=== PATIENT | female | born 1985 | race Caucasian/White ===

== ENCOUNTER 2020-06-26 12:49 | Observation (INO) ==
[2020-06-26] MEDS ORDERED: CefOXitin 1,000 MG VIAL ONE (18:23)
[2020-06-26] MEDS ORDERED: 0.9 % Sodium Chloride 1,000 ML IVC SCH (18:30)
[2020-06-26] MEDS ORDERED: Ondansetron 4 MG/2 ML VIAL ONE (18:34)
[2020-06-26] MEDS ORDERED: *HR* Rocuronium Bromide 50 MG/5 ML VIAL ONE (18:34)
[2020-06-26] MEDS ORDERED: *HR* FentaNYL (PF) 100 MCG/2 ML VIAL ONE (18:34)
[2020-06-26] MEDS ORDERED: *HR* Propofol 200 MG/20 ML VIAL IVP ONE (18:35)
[2020-06-26] MEDS ORDERED: *HR* Succinylcholine 200 MG/10 ML VIAL IVP ONE (18:39)
[2020-06-26] MEDS ORDERED: Ringers Solution, Lactated 1,000 ML IVC SCH (18:45)
[2020-06-26] MEDS ORDERED: Lidocaine -MPF 1% 5 ML AMPUL ONE (19:09)
[2020-06-26] MEDS ORDERED: CefOXitin 2,000 MG VIAL ONE (19:28)
[2020-06-26] MEDS ORDERED: *HR* HYDROMORPHONE 2 MG/ML VIAL ONE (19:36)
[2020-06-26] MEDS ORDERED: Sugammadex Sodium 200 MG/2 ML VIAL IV ONE (19:59)
[2020-06-26] MEDS: *HR* HYDROmorphone (PF) 1 MG/ML SYRINGE IVP PRN ×4 (20:35→21:02)
[2020-06-26] MEDS ORDERED: Ondansetron 4 MG/2 ML VIAL IVP PRN (21:23)
[2020-06-26] MEDS ORDERED: 0.9 % Sodium Chloride 1,000 ML ONE (21:26)
[2020-06-26] MEDS: 0.9 % Sodium Chloride 1,000 ML IVC SCH (21:37)
[2020-06-27] MEDS: Piperacillin/Tazobactam 3.375 GM in 0.9 % Sodium Chloride Mini Bag 100 ML IVPB SCH ×3 (00:06→16:47)
[2020-06-27] MEDS: Pantoprazole 40 MG VIAL IVP SCH (05:48)
[2020-06-27] MEDS: *HR* OxyCODONE/APAP 5/325 TABLET PO PRN ×3 (07:14→18:41)
[2020-06-27] MEDS: 0.9 % Sodium Chloride 1,000 ML IVC SCH ×2 (07:14→20:58)
[2020-06-27] MEDS ORDERED: Melatonin 3 MG TABLET PO SCH (21:00)
[2020-06-27] MEDS ORDERED: QUEtiapine Fumarate 300 MG TABLET PO SCH (21:00)
[2020-06-28] MEDS: Piperacillin/Tazobactam 3.375 GM in 0.9 % Sodium Chloride Mini Bag 100 ML IVPB SCH ×2 (00:53→07:47)
[2020-06-28] MEDS: Pantoprazole 40 MG VIAL IVP SCH (06:10)
[2020-06-28 08:00] VITALS: BP 110/74
== END 2020-06-28 11:58 | disposition home or self-care (01) ==
LOC: 3ANU
PROVIDERS: ADMIT Surgery; ATTEND Surgery

== ENCOUNTER 2021-12-30 08:14 | Observation (INO) ==
[2021-12-30] MEDS ORDERED: *HR* LORazepam 1 MG TABLET PO STA (09:22)
[2021-12-30] MEDS ORDERED: Ondansetron 4 MG/2 ML VIAL IVP ONE (09:22)
[2021-12-30 09:28] LABS: Basophils % 0.2 %; Hematocrit 39.7 % (35.3-44.9); Hemoglobin 12.5 g/dL (11.5-15.4); Immature Granulocytes % 0.4 % (0-4); Lymphocytes # 1.7 K/mcL (0.6-4.6); Lymphocytes % 19.7 %; Mean Corpuscular HGB Conc 31.5 g/dL (31.6-35.5); Mean Corpuscular Hemoglobin 26.1 pg (28.0-33.3); Mean Corpuscular Volume 82.9 fL (83.0-100.0); Mean Platelet Volume 10.9 fL (9.4-12.4); Monocytes # 0.5 K/mcL (0.0-1.3); Monocytes % 5.9 %; Neutrophils # 6.3 K/mcL (1.6-8.9); Platelet Count 304 K/mcL (140-400); Red Blood Count 4.79 M/mcL (3.82-4.97); Red Cell Distribution Width 14.8 % (11.5-14.5); Segmented Neutrophils % 73.8 %; White Blood Count 8.5 K/mcL (4.3-11.1)
[2021-12-30 10:00] LABS: Alanine Aminotransferase 71 Units/L (7-52); Albumin 4.4 g/dL (3.5-5.7); Albumin/Globulin Ratio 1.4 (1.1-2.2); Alkaline Phosphatase 92 Units/L (34-104); Aspartate Amino Transferase 75 Units/L (13-39); BUN/Creatinine Ratio 8 (6-26); Bilirubin,Indirect 0.3 mg/dL (0.0-1.0); Bilirubin,Total 0.3 mg/dL (0.3-1.0); Blood Urea Nitrogen 8 mg/dL (6-20); Calcium 8.5 mg/dL (8.6-10.3); Carbon Dioxide 27 mEq/L (23-29); Chloride 100 mEq/L (98-107); Ethanol < 10 mg/dL (Less than 10); Globulin 3.2 g/dL (2.4-3.5); Glucose 146 mg/dL (70-105); Osmolality,Calculated 283 (280-300); Potassium 3.5 mEq/L (3.5-5.1); Sodium 136 mEq/L (136-145); Total Protein 7.6 g/dL (6.4-8.9); Troponin I < 0.03 ng/mL (< 0.04)
[2021-12-30 10:17] LABS: Bacteria,Urine Few per hpf (None-Few); Bilirubin,Urine Negative (Negative); Blood,Urine Negative (Negative); Clarity,Urine Turbid (Clear); Color,Urine Light-Yellow (Yellow); Glucose,Urine (UA) Normal (Normal); Hyaline Casts,Urine Few per lpf (None Seen); Ketones,Urine Negative (Negative); Leukocyte Esterase,Urine Trace (Negative); Mucus,Urine Few per lpf (None-Few); Nitrite,Urine Negative (Negative); Protein,Urine 50 mg/dL (Neg-Trace); Squamous Epithelial Cell,Urine Moderate per hpf (None-Few); Urobilinogen,Urine Normal (Normal)
[2021-12-30 10:50] LABS: Amphetamine Screen,Urine Negative ng/mL (Cutoff=1000); Barbiturate Screen,Urine Negative ng/mL (Cutoff=200); Benzodiazepines Screen,Urine Negative ng/mL (Cutoff=200); Cannabinoid Screen,Urine Negative ng/mL (Cutoff = 50); Cocaine Screen,Urine Negative ng/mL (Cutoff= 300); Opiate Screen,Urine Negative ng/mL (Cutoff=300); Phencyclidine Screen,Urine Negative ng/mL (Cutoff=25)
[2021-12-30] MEDS ORDERED: Acetaminophen 325 MG TABLET PO PRN (14:13)
[2021-12-30] MEDS ORDERED: Naloxone 0.4 MG/ML INJ IVP PRN (14:13)
[2021-12-30] MEDS ORDERED: *HR* LORazepam 2 MG/ML VIAL IVP PRN (14:15)
[2021-12-30] MEDS ORDERED: *HR* LORazepam 0.5 MG TABLET PO ONE (17:09)
[2021-12-30] MEDS ORDERED: Gadolinium Contrast Agent (WT Based) IV PRN (17:12)
[2021-12-30] MEDS: Ondansetron 4 MG/2 ML VIAL IVP PRN (17:21)
[2021-12-30] MEDS ORDERED: lamoTRIgine 25 MG TABLET PO SCH (21:00)
[2021-12-30] MEDS ORDERED: QUEtiapine Fumarate 300 MG TABLET PO SCH (21:00)
[2021-12-31] MEDS: *HR* Enoxaparin 40 MG/0.4 ML SYRINGE SQ SCH ×2 (06:35→06:37)
[2021-12-31 08:15] LABS: Hematocrit 36.6 % (35.3-44.9); Hemoglobin 11.9 g/dL (11.5-15.4); Mean Corpuscular HGB Conc 32.5 g/dL (31.6-35.5); Mean Corpuscular Hemoglobin 26.2 pg (28.0-33.3); Mean Corpuscular Volume 80.6 fL (83.0-100.0); Mean Platelet Volume 11.5 fL (9.4-12.4); Platelet Count 256 K/mcL (140-400); Red Blood Count 4.54 M/mcL (3.82-4.97); Red Cell Distribution Width 15.2 % (11.5-14.5); White Blood Count 6.9 K/mcL (4.3-11.1)
[2021-12-31] MEDS: Ondansetron 4 MG/2 ML VIAL IVP PRN (08:38)
[2021-12-31 08:44] VITALS: BP 114/67; PULSE 81; TEMP 98.4; O2SAT 98
[2021-12-31 11:48] LABS: Calcium 8.3 mg/dL (8.6-10.3); Magnesium 1.8 mg/dL (1.6-2.6); Phosphorous 2.8 mg/dL (2.7-4.5); Potassium 3.9 mEq/L (3.5-5.1)
== END 2021-12-31 16:20 | disposition home or self-care (01) ==
LOC: EMEROOARM 08:14 → 3BNU 08:14
PROVIDERS: ADMIT Internal Medicine; ATTEND Internal Medicine